=== PATIENT | male | born 2000 | race Caucasian/White ===

== ENCOUNTER 2021-05-08 12:06 | Emergency (ER) | payer BC ==
[~2021-05-08] VITALS: Ht 188 cm; Wt 63.0 kg
--- NOTE | 2021-05-08 12:45 | NUR ---
Received pt from triage with chief complaint of depression with suicidal ideation. Pt has prior h/o self harm: cutting to his legs. Skin check complete - WNL. Pt changed into hospital scrubs and belongings secured. Pt cooperative with assessment. Pt keeps his gaze to the floor and seems almost tearful at times.
[2021-05-08 13:00] LABS: EOSINOPHILS # (AUTO) 0.2 X10'3 (0-0.9); EOSINOPHILS % (AUTO) 4.3 % (0-6); HEMATOCRIT 45.9 % (42.0-52.0); HEMOGLOBIN 15.3 g/dl (14.0-17.9); LYMPHOCYTES # (AUTO) 1.2 X10'3 (1.1-4.8); LYMPHOCYTES % (AUTO) 22.8 % (21-51); MEAN CORPUSCULAR HEMOGLOBIN 29.3 PG (27.0-31.0); MEAN CORPUSCULAR HGB CONC 33.3 g/dL (33.0-36.5); MEAN PLATELET VOLUME 8.1 FL (7.4-10.4); MONOCYTES # (AUTO) 0.3 X10'3 (0-0.9); MONOCYTES % (AUTO) 5.3 % (2-12); NEUTROPHILS # (AUTO) 3.4 X10'3 (1.8-7.7); NEUTROPHILS % (AUTO) 66.6 % (42-75); PLATELET COUNT 252 X10'3 (140-440); RED BLOOD COUNT 5.22 X10'6 (4.70-6.10); RED CELL DISTRIBUTION WIDTH 13.4 % (11.5-14.5); WHITE BLOOD COUNT 5.1 X10'3 (4.5-11.0)
--- NOTE | 2021-05-08 13:00 | NUR ---
Pt currently lying in bed, eyes closed, resting calmly.
[2021-05-08 13:10] LABS: ALANINE AMINOTRANSFERASE 19 U/L (12-78); ALBUMIN 4.6 G/DL (3.4-5.0); ALBUMIN/GLOBULIN RATIO 1.4 (1.1-1.5); ALKALINE PHOSPHATASE 86 IU/L (46-116); ANION GAP 10 (8-16); ASPARTATE AMINO TRANSFERASE 15 U/L (10-37); BILIRUBIN,TOTAL 0.8 MG/DL (0.1-1.0); BLOOD UREA NITROGEN 9 MG/DL (7-18); BUN/CREATININE RATIO 9.9 (5.4-32.0); CALCIUM 9.4 MG/DL (8.5-10.1); CHLORIDE 105 MMOL/L (99-107); CREATININE 0.91 MG/DL (0.60-1.10); GLUCOSE 100 MG/DL (70-104); POTASSIUM 4.2 MMOL/L (3.5-5.1); SODIUM 143 MMOL/L (135-145); TOTAL PROTEIN 7.8 G/DL (6.4-8.2); eGFR > 90 ML/MIN
[2021-05-08 13:12] LABS: CLARITY,URINE CLEAR (Clear); COLOR,URINE YELLOW (Yellow); GLUCOSE, URINE NEGATIVE (Neg); KETONES,URINE TRACE mg/dl (Neg); LEUKOCYTE ESTERASE ,URINE NEGATIVE (Neg); NITRITES, URINE NEGATIVE (Neg); OCCULT BLOOD,URINE NEGATIVE (Neg); PH,URINE 7.5 (4.8-8.0); PROTEIN,URINE NEGATIVE (Neg); UROBILINOGEN,URINE 0.2 E.U/dL (0.2-1.0)
[2021-05-08 13:13] LABS: UA COLLECTION TYPE CLN CATCH MIDSTREAM
[2021-05-08 13:19] LABS: ETHANOL < 0.010 GM/DL (0.0-0.010)
[2021-05-08 13:29] LABS: URINE AMPHETAMINE SCREEN NEGATIVE (Neg); URINE BARBITUATE SCREEN NEGATIVE (Neg); URINE BENZODIAZEPINES SCREEN NEGATIVE (Neg); URINE CANNABINOID SCREEN POSITIVE (Neg); URINE COCAINE SCREEN NEGATIVE (Neg); URINE METHADONE SCREEN NEGATIVE (Neg); URINE OPIATE SCREEN NEGATIVE (Neg); URINE PHENCYCLIDINE SCREEN NEGATIVE (Neg)
--- NOTE | 2021-05-08 14:12 | NUR ---
packet faxed to [facility]
--- NOTE | 2021-05-08 15:00 | NUR ---
Pt lying in bed resting quietly without complaints.
--- NOTE | 2021-05-08 17:00 | NUR ---
Pt continues to rest quietly in bed. Pt was evaluated by Rancho from [facility] and put on 5150 for DTS. Pt currently resting quietly in bed without complaints.
[2021-05-08] MEDS ORDERED: NO HOME MEDS (18:22)
--- NOTE | 2021-05-08 19:00 | NUR ---
Pt awoke to eat dinner and is resting quietly in bed
--- NOTE | 2021-05-08 21:00 | NUR ---
Pt restless and having a hard time sleeping, so we got him a portable television to distract him.
--- NOTE | 2021-05-08 23:00 | NUR ---
Pt sleeping on and off. No complaints.
[2021-05-09] MEDS ORDERED: Melatonin 3mg tablet PO STA (01:17)
[2021-05-09] MEDS ORDERED: LORazepam 1 MG tablet PO ONE (01:20)
--- NOTE | 2021-05-09 02:06 | NUR ---
Patient is noted to be well oriented. He denies H/I, S/I, or any hallucinatins. Patient complained of anxiety and inability to sleep. Ativan 1 mg PO, Melatonin 6 mg PO were given. Patient was medication compliant.
--- NOTE | 2021-05-09 04:11 | NUR ---
Patient is sleeping quietly on his right side. In direct view from the nurses station.
--- NOTE | 2021-05-09 05:16 | NUR ---
Patient sleeping on his left side, no distress.
--- NOTE | 2021-05-09 06:42 | NUR ---
Received pt. sleeping in bed at the beginning of the shift, rr even and unlabored.
--- NOTE | 2021-05-09 07:36 | NUR ---
Pt. continues to sleep at this time, laying on his rt. side, appears to be resting comfortably
--- NOTE | 2021-05-09 08:30 | NUR ---
Pt. continues to sleep at this time, rr even and unlabored. He refused his breakfast and will continue to monitor.
--- NOTE | 2021-05-09 09:29 | NUR ---
1:1 completed at bedside, pt. continues report S/I, but denies any current plan. Pt. also denies any H/I, A/V/HUSSEIN, and no paranoid statements made. Pt. endorses anxiety, but reports it is improved since taking Ativan last night. He is guarded with conversation. Pt. reports he has Bipolar D/O, but no medications have been working for him and has not been taking any. He was notified by this law writer that he has been accepted upstairs at [facility], and reports understanding.
--- NOTE | 2021-05-09 10:23 | NUR ---
Pt. continues to sleep at this time after up to use the BR independently. He appears to be resting comfortably.
[2021-05-09 10:25] VITALS: BP 108/80
== END 2021-05-09 10:30 | disposition home or self-care (01) ==
LOC: ER 12:07
DX: R45.851 Suicidal ideations (principal); F31.9 Bipolar disorder, unspecified; F41.9 Anxiety disorder, unspecified; F12.90 Cannabis use, unspecified, uncomplicated; Z72.89 Other problems related to lifestyle
CPT/HCPCS: 36415; 80053; 80305; 80320; 81003; 84443; 85025; 99285

== ENCOUNTER 2021-05-09 10:20 | Inpatient (IN) | payer BC ==
[~2021-05-09] VITALS: Ht 188 cm; Wt 64.3 kg
[~2021-05-09 10:20] MED LIST: NO HOME MEDS
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
[2021-05-09] MEDS ORDERED: magnesium hydroxide 30ml (MOM) UD suspension PO PRN (11:10)
[2021-05-09] MEDS ORDERED: acetaminophen 325mg tablet PO PRN ×2 (11:10)
[2021-05-09] MEDS ORDERED: loperamide 2mg capsule PO PRN (11:10)
[2021-05-09] MEDS ORDERED: mag hydrox/Alum hydrox/simeth 30ml oral suspension PO PRN (11:10)
[2021-05-09] MEDS: LORazepam 1 MG tablet PO PRN ×2 (12:31→21:02)
[2021-05-09 20:00] VITALS: BP 108/79
[2021-05-09] MEDS: traZODone 50mg tablet PO PRN (21:03)
--- NOTE | 2021-05-10 01:23 | NUR ---
Nursing Progress Note: Legal hold: 5150. Client on involuntary status for DTS. Report received from RADHA Solitario with use of SBAR. Why are they here: Assessment What has happened this shift: S/I, H/I: A/VH: Sleep: ADL's: Independent Group attendance: Were meds taken: Any med S/E: Mental Status Exam Appearance: Eye contact: F Behavior: Cooperative, guarded. Pt out for meals and in rec room on the recumbant bike. More social with peers. Speech: Clear, normal rate/rhythm. Rapid when talking about her living situation. Mood: Restless Affect: Congruent to mood. Thought process: Circumstantial Thought Content: Apprehensive about where she is going to live. I will barricade the door with everything. Cognition: Intact. Insight: Poor. Judgment: Poor. Interventions PRN's used: Atarax 50mg Therapeutic interventions: Maintained safe and therapeutic environment, encouraged participation in unit activities, ensured contract for safety, provided active listening with positive feedback, medication administration/education/monitoring. Restraints/seclusion/emergency medication: N/A Justification of Continued Inpatient Treatment: Patient needs interruption of current crisis in a safe and therapeutic milieu until stable. Addendum: 05/10/21 at 0129 by Brent Booth RN Please ignore above note.
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
[2021-05-10 07:31] VITALS: BP 115/83
[2021-05-10 08:34] LABS: CHOL/HDL RATIO 2.9 (0.00-4.99); CHOLESTEROL 169 MG/DL (0-200); HDL CHOLESTEROL 59 MG/DL (35-60); LDL CHOLESTEROL 93 MG/DL (50-100); TRIGLYCERIDES 74 MG/DL (20-135)
[2021-05-10] MEDS ORDERED: hydrOXYzine 25 MG tablet PO PRN (14:35)
--- NOTE | 2021-05-10 17:15 | NUR ---
Nursing Progress Note: Legal hold: 5150. Client on involuntary status for DTS. Report received from Janine Kline RN with use of SBAR. Why are they here: ADMIT NOTE: Pt. admitted for suicidal ideation with suicide gesture; drinking ETOH and getting into bathtub with a razor. Pt. is hopeless/helpless. Pt. has 2 previous suicidal gestures as well as long mental health hx. Pt. self-medicates with ETOH and cannabis after not receiving relief from psychiatric medications. Pt. feels isolated after moving to [place] with significant other and feels like a burden on others. Pt. reports medical hx of chronic low sodium levels, tic movements, and bloody stools when he becomes stressed and believes he was dx with ulcers. Assessment What has happened this shift: Pt. asleep at start of shift. Pt. awoke for breakfast and took all medications. Pt. observed coloring in the day room after breakfast. Pt.s significant other visited and brought pt. reading material. 1:1 done at bedside, pt. reports feeling better today, denying SI. RN approached pt. in afternoon and asked how he was feeling, pt. responded with bright affect and smiled, replied, Im doing OK. SI/HI: Denies A/VH: Denies. Sleep: Pt. slept 7 hrs on NOC shift and did not appear to nap on day shift. ADL's: Independent Group attendance: NA Were meds taken: Yes Any med S/E: Denies Mental Status Exam Appearance: Clean and neat, wearing green scrubs. Eye contact: Minimal Behavior: Cooperative, polite, socially withdrawn. Speech: WNL Mood: Depressed Affect: Congruent with mood. Thought process: Linear. Thought Content: Getting treatment. Cognition: A&Ox4 Insight: Fair Judgment: Fair Interventions PRN's used: None Therapeutic interventions: Maintained safe and therapeutic environment, encouraged participation in unit activities, ensured contract for safety, provided active listening with positive feedback, medication administration/education/monitoring. Restraints/seclusion/emergency medication: N/A Justification of Continued Inpatient Treatment: Patient needs interruption of current crisis in a safe and therapeutic milieu until stable.
[2021-05-10 19:26] VITALS: BP 142/80
[2021-05-10] MEDS: traZODone 50mg tablet PO PRN (21:03)
--- NOTE | 2021-05-11 00:29 | NUR ---
Nursing Progress Note: Legal hold: 5150. Client on involuntary status for DTS. Report received from RADHA Solitario with use of SBAR. Why are they here: ADMIT NOTE: Pt. admitted for suicidal ideation with suicide gesture; drinking ETOH and getting into bathtub with a razor. Pt. is hopeless/helpless. Pt. has 2 previous suicidal gestures as well as long mental health hx. Pt. self-medicates with ETOH and cannabis after not receiving relief from psychiatric medications. Pt. feels isolated after moving to [place] with significant other and feels like a burden on others. Pt. reports medical hx of chronic low sodium levels, tic movements, and bloody stools when he becomes stressed and believes he was dx with ulcers. Assessment What has happened this shift: Pt was up in his chair at the beginning of shift reading his book. Pt was cooperative and polite and he let the RN perform an assessment and denied any AH/VH or and SI/HI. Pt did take his PRN trazodone and then went back to reading his book. At one point he was seen in the activity room watching television with other patients. After this he went to his room and went to sleep. SI/HI: Denies A/VH: Denies. Sleep: Pt. currently still sleeping ADL's: Independent Group attendance: NA Were meds taken: Yes Any med S/E: Denies Mental Status Exam Appearance: Clean and neat, wearing green scrubs. Eye contact: Minimal Behavior: Cooperative, polite, socially withdrawn. Speech: WNL Mood: Depressed Affect: Congruent with mood. Thought process: Linear. Thought Content: Getting treatment. Cognition: A&Ox4 Insight: Fair Judgment: Fair Interventions PRN's used: Trazodone Therapeutic interventions: Maintained safe and therapeutic environment, encouraged participation in unit activities, ensured contract for safety, provided active listening with positive feedback, medication administration/education/monitoring. Restraints/seclusion/emergency medication: N/A Justification of Continued Inpatient Treatment: Patient needs interruption of current crisis in a safe and therapeutic milieu until stable.
[2021-05-11 07:26] VITALS: BP 158/77
--- NOTE | 2021-05-11 17:01 | NUR ---
Nursing Progress Note: Legal hold: 5150. Client on involuntary status for DTS. Report received from Jones GARCIA with use of SBAR. Why are they here: ADMIT NOTE: Pt. admitted for suicidal ideation with suicide gesture; drinking ETOH and getting into bathtub with a razor. Pt. is hopeless/helpless. Pt. has 2 previous suicidal gestures as well as long mental health hx. Pt. self-medicates with ETOH and cannabis after not receiving relief from psychiatric medications. Pt. feels isolated after moving to [place] with significant other and feels like a burden on others. Pt. reports medical hx of chronic low sodium levels, tic movements, and bloody stools when he becomes stressed and believes he was dx with ulcers. Assessment What has happened this shift: Pt awake and visible on the unit most of the day. He would go to his room to read, journal, or look out the window. He engaged with peers, offering a listening ear and painting nails (with RN supervision). He denies SI and is he is bright most of the day and states he is feeling much better. Pt states he knows he becomes overwhelmed and his mood can escalate to feeling suicidal, and that his recent move to [place] coupled with long work hours caused him a lot of stress that he was not coping with well. Pt states he used to go to counseling in his home state, which he found helpful. Pt agrees that he should find a therapist again for additional support, and that a different work environment may be better suited for his personality and overall stress. Pt partner came to visit, and pt states he is supportive. SI/HI: Denies A/VH: Denies. Sleep: Did not nap today ADL's: Independent Group attendance: N/A Were meds taken: No scheduled medications Any med S/E: N/A Mental Status Exam Appearance: Clean and neat, wearing personal clothing Eye contact: Good Behavior: Cooperative, polite, engaging and being helpful with peers Speech: WNL Mood: "Better", pt brightens during conversation and seems reflective Affect: Congruent with mood Thought process: Linear Thought Content: plans for discharge Cognition: A&Ox4 Insight: Fair to good Judgment: Fair to good Interventions PRN's used: None Therapeutic interventions: Maintained safe and therapeutic environment, encouraged participation in unit activities, ensured contract for safety, provided active listening with positive feedback, medication administration/education/monitoring. Restraints/seclusion/emergency medication: N/A Justification of Continued Inpatient Treatment: Patient needs interruption of current crisis in a safe and therapeutic milieu until stable.
[2021-05-11 19:37] VITALS: BP 132/89
[2021-05-11] MEDS: traZODone 50mg tablet PO PRN (20:04)
--- NOTE | 2021-05-12 01:26 | NUR ---
Nursing Progress Note: Legal hold: 5150. Client on involuntary status for DTS. Report received from RADHA Solitario with use of SBAR. Why are they here: Pt. admitted for suicidal ideation with suicide gesture; drinking ETOH and getting into bathtub with a razor. Pt. is hopeless/helpless. Pt. has 2 previous suicidal gestures as well as long mental health hx. Pt. self-medicates with ETOH and cannabis after not receiving relief from psychiatric medications. Pt. feels isolated after moving to [place] with significant other and feels like a burden on others. Pt. reports medical hx of chronic low sodium levels, tic movements, and bloody stools when he becomes stressed and believes he was dx with ulcers. Assessment What has happened this shift: The patient was in the rec room watching TV with his peers. He reports he doesn't feel suicidal and hopes to leave after SW helps him with resources. He says that he just moved here and everything has just been to much too fast. He plans to not drink anymore. SI/HI: Denies A/VH: Denies. Sleep: See sleep assessment ADL's: Independent Group attendance: NA Were meds taken: Yes Any med S/E: None reported or observed. Mental Status Exam Appearance: Clean and neat, wearing green scrubs. Eye contact: direct Behavior: Cooperative, polite, socially withdrawn. Speech: Normal Mood: Depressed Affect: Congruent with mood. Thought process: Linear. Thought Content: Getting needs met. Cognition: A&Ox4 Insight: Fair Judgment: Fair Interventions PRN's used: Trazodone Therapeutic interventions: Maintained safe and therapeutic environment, encouraged participation in unit activities, ensured contract for safety, provided active listening with positive feedback, medication administration/education/monitoring. Restraints/seclusion/emergency medication: N/A Justification of Continued Inpatient Treatment: Patient needs interruption of current crisis in a safe and therapeutic milieu until stable.
[2021-05-12 07:28] VITALS: BP 128/71
[2021-05-12] MEDS ORDERED: HYDR50TA65 PO (11:01)
--- NOTE | 2021-05-12 11:40 | NUR ---
DISCHARGE NOTE: PT. discharged to home, driven by significant other. Pt. discharged with all belongings and valuables. RN went over all discharge paperwork. Pt. verbalized understanding and signed all paper work. Pt. understands f/u plan and discharge medication and agrees. Meds Excripted to pharmacy. Pt. is A&Ox4 and denies SI/HI, A/V hallucinations. Pt. is in no apparent distress. Pt. showed improvement in mood during stay.
--- NOTE | 2021-05-12 11:51 | NUR ---
DCP Presenting Issues: Pt's ready for d/c, attending physician requesting SS support w/DCP activities. Interventions: SS met w/pt and engaged them in assessing their needs following d/c. Per discussion pt has only been in [facility] for a month, he's not been able to establish any healthcare services. SS provided pt with a new pt registration packet for [facility] to establish PMD services, SS also provided information re resources for LGTBQ individuals including [facility] SS encourage pt to contact these community resources to explore what they offer. Plan: Pt to d/c today. Rhoda Guillaume LCSW Addendum: 05/12/21 at 1214 by Rhoda Guillaume Amended: Links added.
== END 2021-05-12 12:40 | disposition home or self-care (01) | DRG 885 ==
LOC: ADULT MH 10:47
PROVIDERS: ADMIT Psychiatry & Neurology Psychiatry; ATTEND Psychiatry & Neurology Psychiatry
DX: F31.9 Bipolar disorder, unspecified (principal); R45.851 Suicidal ideations; F10.24 Alcohol dependence with alcohol-induced mood disorder; F12.90 Cannabis use, unspecified, uncomplicated; F41.9 Anxiety disorder, unspecified; F64.9 Gender identity disorder, unspecified; J45.909 Unspecified asthma, uncomplicated; Z79.899 Other long term (current) drug therapy; Z81.8 Family history of other mental and behavioral disorders
CPT/HCPCS: 36415; 80061; 83036; 84443; 87081; Q0177